=== PATIENT | female | born 1960 | race Two or more races ===

== ENCOUNTER 2016-10-06 17:15 | Emergency (ER) | payer MEDICAID ==
[~2016-10-06] VITALS: Ht 160 cm; Wt 58.0 kg
[2016-10-06] MEDS ORDERED: IBUPROFEN 600MG TABLET PO ONE (18:15)
[2016-10-06 18:37] VITALS: BP 108/72
== END 2016-10-06 19:25 | disposition home or self-care (01) ==
LOC: ER 17:16
DX: S16.1XXA Strain of muscle, fascia and tendon at neck level, initial encounter (principal); J45.909 Unspecified asthma, uncomplicated; E11.9 Type 2 diabetes mellitus without complications; I10 Essential (primary) hypertension; V49.59XA Passenger injured in collision with other motor vehicles in traffic accident, initial encounter; Y93.89 Activity, other specified; Y99.9 Unspecified external cause status; Y92.89 Other specified places as the place of occurrence of the external cause
CPT/HCPCS: 93005; 99283